=== PATIENT | male | born 1955 | race Caucasian/White ===

== ENCOUNTER 2016-12-12 17:05 | Emergency (ER) | payer OTHER ==
--- NOTE | 2016-12-12 18:20 | DIAGNOSTIC IMAGING REPORT ---
PROCEDURE: XR ANKLE 3 OR 4 VIEWS - RIGHT INDICATION: TRAUMA/INJURY TECHNIQUE: Four views. COMPARISON: None. FINDINGS: Osseous structures and joint spaces are normal. IMPRESSION: 1. Normal right ankle.
--- NOTE | 2016-12-12 18:30 | ED CLINICAL REPORT ---
Clinical Report - Physicians/Mid Levels [facility] [address] [place] [address] 12/12/2016 17:08 Patient: ABIODUN JOHNSON Time Seen: 17:19; upon arrival, initial patient contact, initial documentation, patient care assumed. Arrived- By private vehicle. Historian- patient. HISTORY OF PRESENT ILLNESS Chief Complaint: Injury to the right ankle. The injury happened yesterday. Fell while walking and landed on the ground; slipped (on ice). Occurred at home. Patient is experiencing severe pain. Patient denies injury to the head or neck. No other injury. REVIEW OF SYSTEMS The patient complains of pain on weight bearing. He has had swelling. No tingling, weakness, numbness or skin laceration. All systems otherwise negative, except as recorded above. PAST HISTORY See nurses notes. PROBLEMS: Congestive Heart Failure. Esrd. --17:21 Ree Padron R.N. Htn. --17:23 Ree Padron R.N. ADDITIONAL SURGERIES: Fistula. Hernia Repair. PDA. Peritoneal dialysis. --17:21 Ree Padron R.N. SOCIAL HISTORY Heavy tobacco smoker. No alcohol use or drug use. No recent travel. Is a local resident. FAMILY HISTORY No significant family medical history. ADDITIONAL NOTES The nursing notes have been reviewed with agreement regarding the chief complaint, HPI, ROS, PMH and patient medications and allergies. PHYSICAL EXAM Vital Signs: 12/12/2016 17:16 BP: 154/66. HR: 58. RR: 18. O2 saturation: 96%. Temp: 99.3 F. Have been reviewed as normal and appear to be correct. Appearance: Alert. Oriented X3. No acute distress. Head: Head atraumatic. Eyes: Pupils equal, round and reactive to light. Eyes normal inspection. Respiratory: No respiratory distress. Skin: Skin intact. Skin warm and dry. Extremities: Ankle injury present. Right lateral ankle: severe tenderness, moderate swelling and medium sized ecchymosis of the lateral malleolus. Limited ROM (diminished plantar flexion, dorsiflexion, inversion and eversion). Neurovascular intact distally. No ligamentous laxity present. No joint effusion. No erythema, laceration, abrasion, puncture wound or foreign body. No deformity. No foot injury. Foot and ankle exam otherwise negative. Extremities otherwise negative. Gait: Abnormal gait. Gait not tested due to pain. Neuro, Vascular and Tendons: Vascular status intact. Sensation intact. Motor intact. Tendon function intact. Neuro: Oriented X 3. No motor deficit. No sensory deficit. Note: isolated injury to ankle. LABS, X-RAYS, AND EKG X-Rays: Right ankle negative. Rt Ankle X-ray: (IMPRESSION: 1. Normal right ankle. Electronically Final signed by:David Tam MD 12/12/2016 6:24:38 PM Technologist: UMBERTO). The X-rays were interpreted by the radiologist and contemporaneously by me. PROGRESS AND PROCEDURES Course of Care: 17:27 12/12/16. pt has bro for frequent narcs, #158 oxycodone for feb so far, see report for full details. Patient counseled in person regarding the patient's stable condition, test results and diagnosis. 18:30. Differential Diagnosis: Other possible considerations: ankle fx, sprain, contusions. Above considerations are based on history, physical exam and X-Ray data. Differential diagnosis was discussed with patient. Disposition: Discharged home in good and improved condition (18:30). Condition: good and stable. CLINICAL IMPRESSION Sprain of the tibiofibular ligament of the right ankle. INSTRUCTIONS Warnings: GENERAL WARNINGS: Return or contact your physician immediately if your condition worsens or changes unexpectedly, if not improving as expected, or if other problems arise. Specifically return if problem worsens. Follow-up: Follow up with your doctor in about one week even if well. Call for an appointment. Summary of care provided to patient. Understanding of the discharge instructions verbalized by patient. (Electronically signed by Aubree Phillips A.R.N.P. 12/12/2016 21:12)
--- NOTE | 2016-12-12 18:31 | ED NURSING NOTES ---
Clinical Report - Nurses [facility] [place] [address] 12/12/2016 17:08 Patient: ABIODUN JOHNSON TRIAGE Triage time 17:16. Acuity: LEVEL 4. Chief Complaint: INJURY TO RIGHT ANKLE. Alert. --17:23 Ree Padron R.N. 17:16 12/12/16. BP: 154/66. HR: 58. RR: 18. O2 saturation: 96%. Temp: 99.3 F. Pain level now 12/23. --17:23 Ree Padron R.N. Weight: 72 kg stated. Height/Length: 71 inches Per Patient. BMI: 22.1. --17:19 Ree Padron R.N. Medications Renvela Oral. --17:25 Ree Padron R.N. Carvedilol Phosphate ER Oral. --17:25 Ree Padron R.N. Lisinopril Oral. --17:26 Ree Padron R.N. Warfarin Sodium Oral (Tablet 2.5 mg) 1 tablet, daily. --17:26 Ree Padron R.N. Warfarin Sodium Oral (Tablet 5 mg) 1 tablet, MWFS. --17:26 Ree Padron R.N. Allergies None. --17:27 Ree Padron R.N. History Arrived by private vehicle. Historian: patient. Accompanied by family. Primary physician (Jaqueline). This occurred (about 2 days). Mechanism of injury: fell. He has had trouble walking. 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 SOCIAL HX: Heavy tobacco smoker (cigarette)- less than 1 pack per day. No alcohol use or drug use. --17:23 Ree Padron R.N. PROBLEMS: Congestive Heart Failure. Esrd. --17:21 Ree Padron R.N. Htn. --17:23 Ree Padron R.N. ADDITIONAL SURGERIES: Fistula. Hernia Repair. PDA. Peritoneal dialysis. --17:21 Ree Padron R.N. PHYSICAL ASSESSMENT To room via wheelchair. GENERAL / NEURO / PSYCH: Oriented X 4. Appears in pain. EXTREMITIES: Right ankle: tenderness, swelling and erythema. --17:24 Ree Padron R.N. NURSING PROGRESS NOTES Two patient identifiers checked. Call light placed in reach. Side rails up x 1. Patient ready for evaluation- PA notified. --17:24 Ree Padron R.N. 17:32 Warm blanket to patient per request. --17:33 McQuoid, Trinidad, ER Tech1 17:46 Portable X-ray in progress. --17:46 McQuoid, Trinidad, ER Tech1 Applied dressing. Secured with zena bandage. --19:02 Ree Padron R.N. DISPOSITION / DISCHARGE Condition at departure: unchanged. No learning barriers present. Discharge instructions provided and reviewed with the patient. Patient verbalized understanding. Written instructions provided in Spanish. The patient was discharged home and accompanied by spouse. He left the Emergency Department ambulatory and via private vehicle. Family member driving. --19:02 Ree Padron R.N. Locked/Released at 12/13/2016 8:52 by Lina Baker R.N.
--- NOTE | 2016-12-12 18:31 | ED ORDER SUMMARY ---
..... Patient: ABIODUN JOHNSON OrderSheet [facility] VisitID: [id number] [address] [place] [address] 61y, M Registration Date/Time: 12/12/2016 ORDER SHEET Weight: 72 kg (stated) Allergies: None GENERAL ORDERS: Ankle 3 or 4V Right Urgent (17:36 12/12/2016 HBivens A.R.N.P.) (Ack 17:38 AMcQuoid ER Tech1) (17:47 AMcQuoid ER Tech1) Wilner Wrap (18:39 12/12/2016 HBivens A.R.N.P.) (18:48 DMaziarka R.N.) MEDICATION ORDERS: IV FLUIDS: ORDER SHEET NOTES: [Electronically signed by Aubree PhillipsR.N.PMo (21:12 12/12/2016)] [Electronically signed by Lina Baker R.N. (08:52 12/13/2016)] [Electronically locked/signed by Lina Baker R.N. (08:52 12/13/2016)]
--- NOTE | 2016-12-12 18:31 | ED ORDER SUMMARY ---
..... Patient: ABIODUN JOHNSON OrderSheet [facility] VisitID: [id number] [address] [place] [address] 61y, M Registration Date/Time: 12/12/2016 ORDER SHEET Weight: 72 kg (stated) Allergies: None GENERAL ORDERS: Ankle 3 or 4V Right Urgent (17:36 12/12/2016 HBivens A.R.N.P.) (Ack 17:38 AMcQuoid ER Tech1) (17:47 AMcQuoid ER Tech1) Wilner Wrap (18:39 12/12/2016 HBivens A.R.N.P.) (18:48 DMaziarka R.N.) MEDICATION ORDERS: IV FLUIDS: ORDER SHEET NOTES: [Electronically signed by Aubree PhillipsR.N.PMo (21:12 12/12/2016)] [Electronically signed by Lina Baker R.N. (08:52 12/13/2016)] [Electronically locked/signed by Lina Baker R.N. (08:52 12/13/2016)]
--- NOTE | 2016-12-12 18:31 | ED NURSING NOTES ---
Clinical Report - Nurses [facility] [place] [address] [place] [address] 12/12/2016 17:08 Patient: ABIODUN JOHNSON TRIAGE Triage time 17:16. Acuity: LEVEL 4. Chief Complaint: INJURY TO RIGHT ANKLE. Alert. --17:23 Ree Padron R.N. 17:16 12/12/16. BP: 154/66. HR: 58. RR: 18. O2 saturation: 96%. Temp: 99.3 F. Pain level now 12/23. --17:23 Ree Padron R.N. Weight: 72 kg stated. Height/Length: 71 inches Per Patient. BMI: 22.1. --17:19 Ree Padron R.N. Medications Renvela Oral. --17:25 Ree Padron R.N. Carvedilol Phosphate ER Oral. --17:25 Ree Padron R.N. Lisinopril Oral. --17:26 Ree Padron R.N. Warfarin Sodium Oral (Tablet 2.5 mg) 1 tablet, daily. --17:26 Ree Padron R.N. Warfarin Sodium Oral (Tablet 5 mg) 1 tablet, MWFS. --17:26 Ree Padron R.N. Allergies None. --17:27 Ree Padron R.N. History Arrived by private vehicle. Historian: patient. Accompanied by family. Primary physician (Jaqueline). This occurred (about 2 days). Mechanism of injury: fell. He has had trouble walking. 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 SOCIAL HX: Heavy tobacco smoker (cigarette)- less than 1 pack per day. No alcohol use or drug use. --17:23 Ree Padron R.N. PROBLEMS: Congestive Heart Failure. Esrd. --17:21 Ree Padron R.N. Htn. --17:23 Ree Padron R.N. ADDITIONAL SURGERIES: Fistula. Hernia Repair. PDA. Peritoneal dialysis. --17:21 Ree Padron R.N. PHYSICAL ASSESSMENT To room via wheelchair. GENERAL / NEURO / PSYCH: Oriented X 4. Appears in pain. EXTREMITIES: Right ankle: tenderness, swelling and erythema. --17:24 Ree Padron R.N. NURSING PROGRESS NOTES Two patient identifiers checked. Call light placed in reach. Side rails up x 1. Patient ready for evaluation- PA notified. --17:24 Ree Padron R.N. 17:32 Warm blanket to patient per request. --17:33 McQuoid, Trin[place], ER Tech1 17:46 Portable X-ray in progress. --17:46 McQuoid, Trinidad, ER Tech1 Applied dressing. Secured with zena bandage. --19:02 Ree Padron R.N. DISPOSITION / DISCHARGE Condition at departure: unchanged. No learning barriers present. Discharge instructions provided and reviewed with the patient. Patient verbalized understanding. Written instructions provided in Wolof. The patient was discharged home and accompanied by spouse. He left the Emergency Department ambulatory and via private vehicle. Family member driving. --19:02 Ree Padron R.N. Locked/Released at 12/13/2016 8:52 by Lina Baker R.N.
--- NOTE | 2016-12-13 08:52 | ED MAR SUMMARY ---
..... Medication Administration Record [facility] [address] [place], [place] [id number] Patient: ABIODUN JOHNSON Visit ID: [id number] 61y, M Weight: 72.0 kg Height/Length: 71 in BMI: 22.1 ALLERGIES: None
--- NOTE | 2016-12-13 08:52 | ED MAR SUMMARY ---
..... Medication Administration Record [facility] [address] [place], [place] [id number] Patient: ABIODUN JOHNSON Visit ID: [id number] 61y, M Weight: 72.0 kg Height/Length: 71 in BMI: 22.1 ALLERGIES: None
--- NOTE | 2016-12-13 08:52 | ED MED RECONCILIATION SUMMARY ---
Patient: ABIODUN JOHNSON Medication Reconciliation Report [facility] VisitID: [id number] [address] [place] [address] 61y, M Registration Date/Time: 12/12/2016 Weight: 72 kg Height/Length: 71 in. BMI: 22.1 ALLERGIES: None The patient's Home Medications are listed below: THE FOLLOWING MEDICATIONS NEED TO BE RECONCILED: Carvedilol Phosphate ER Oral Lisinopril Oral Renvela Oral Warfarin Sodium Oral (5 mg) 1 tablet, MWFS Warfarin Sodium Oral (2.5 mg) 1 tablet, daily The source(s) of the original Home Medication information: Not obtained. The following Medications were given to the patient in the Emergency Department: None. The following Medications were prescribed to the patient: None.
--- NOTE | 2016-12-13 08:52 | ED MED RECONCILIATION SUMMARY ---
Patient: ABIODUN JOHNSON Medication Reconciliation Report [facility] VisitID: [id number] [address] [place] [address] 61y, M Registration Date/Time: 12/12/2016 Weight: 72 kg Height/Length: 71 in. BMI: 22.1 ALLERGIES: None The patient's Home Medications are listed below: THE FOLLOWING MEDICATIONS NEED TO BE RECONCILED: Carvedilol Phosphate ER Oral Lisinopril Oral Renvela Oral Warfarin Sodium Oral (5 mg) 1 tablet, MWFS Warfarin Sodium Oral (2.5 mg) 1 tablet, daily The source(s) of the original Home Medication information: Not obtained. The following Medications were given to the patient in the Emergency Department: None. The following Medications were prescribed to the patient: None.
--- NOTE | 2016-12-13 08:52 | ED DISCHARGE INSTRUCTIONS ---
Patient: ABIODUN JOHNSON General Instructions [facility] VisitID: [id number] [place] [address] 61y, M Registration Date/Time: 12/12/2016 Sprain of the tibiofibular ligament of the right ankle. INSTRUCTIONS Warnings: GENERAL WARNINGS: Return or contact your physician immediately if your condition worsens or changes unexpectedly, if not improving as expected, or if other problems arise. Specifically return if problem worsens. Follow-up: Follow up with your doctor in about one week even if well. Call for an appointment. Summary of care provided to patient. Understanding of the discharge instructions verbalized by patient. ADDITIONAL INFORMATION Sprain, Ankle,With X-Ray A sprain is an injury to the ligaments or capsule that holds a joint together. There are no broken bones. Most sprains take from four to six weeks to heal. If the ligament is completely torn (severe sprain), it can take several months to recover. Mild to moderate sprains may be treated with an elastic wrap or an in-shoe splint to provide support and prevent re-injury. A mild sprain may not require any additional support. A severe sprain may require surgery to repair. Home care The following guidelines will help you care for your injury at home: Stay off the injured leg as much as possible until you can walk on it without pain. If you have a lot of pain with walking, crutches or a walker may be prescribed. (These can be rented or purchased at many pharmacies and surgical or orthopedic supply stores). Follow your doctor's advice regarding when to begin bearing weight on that leg. Keep your leg elevated to reduce pain and swelling. When sleeping, place a pillow under the injured leg. When sitting, support the injured leg so it is level with your waist. This is very important during the first 48 hours. Apply an ice pack (ice cubes in a plastic bag, wrapped in a towel) over the injured area for 20 minutes every 12 hours the first day. You can place the ice pack directly over the splint/cast. If you were given a boot, open it to apply the ice pack. Continue with ice packs 34 times a day for the next two days, then as needed for the relief of pain and swelling. You may use acetaminophen or ibuprofen to control pain, unless another pain medicine was prescribed. If you have chronic liver or kidney disease or ever had a stomach ulcer or GI bleeding, talk with your doctor before using these medicines. You may return to sports after healing, when you can run without pain. A sprained ankle is at risk for re-injury during the first six weeks. During that time, protect your ankle with an in-shoe splint that prevents tilting of your ankle from side to side. This is very important if you do active work or play sports during that time. Follow-up care Any X-rays you had today dont show any broken bones, breaks, or fractures. Sometimes fractures dont show up on the first X-ray. Bruises and sprains can sometimes hurt as much as a fracture. These injuries can take time to heal completely. If your symptoms dont improve or they get worse, talk with your doctor. You may need a repeat X-ray. When to seek medical care Get prompt medical attention if any of the following occur: The plaster cast or splint gets wet or soft The fiberglass cast or splint gets wet and does not dry for 24 hours Pain or swelling increases, or redness appears Toes become cold, blue, numb or tingly Re-injure your ankle You have been given the following additional information: Sprain, Ankle, With X-Ray (Electronically signed by Aubree Phillips A.R.N.P. 12/12/2016 21:12)
== END 2016-12-12 19:05 | disposition home or self-care (01) ==
LOC: ED SRH 17:05
DX: S93.431A Sprain of tibiofibular ligament of right ankle, initial encounter (principal); Z79.899 Other long term (current) drug therapy; W00.0XXA Fall on same level due to ice and snow, initial encounter; Y93.9 Activity, unspecified; Y92.009 Unspecified place in unspecified non-institutional (private) residence as the place of occurrence of the external cause; Y99.9 Unspecified external cause status; F17.210 Nicotine dependence, cigarettes, uncomplicated; I10 Essential (primary) hypertension; I50.9 Heart failure, unspecified; Z79.01 Long term (current) use of anticoagulants